=== PATIENT | male | born 1935 | race American Indian/Alaskan Native ===

== ENCOUNTER 2019-05-14 09:13 | Outpatient (CLI) | payer MEDICARE ==
--- NOTE | 2019-05-14 11:06 | Ultrasound Report ---
RENAL ULTRASOUND HISTORY: N28.9 RENAL INSUFFICIENCY COMPARISON: 08/19/2015 TECHNIQUE: Multiple real-time ultrasonographic grayscale images were obtained of the kidneys and urin loren bladder. FINDINGS: Right kidney: Moderate cortical thinning and increased echogenicity of the kidney. No hydronephrosis. Kidney measures 8.2 cm. Left kidney: Moderate cortical thinning and increased echogenicity of the kidney. No hydronephrosis. Kidney measures 6.8 cm. Urinary bladder: No significant abnormality. Additional findings: None. IMPRESSION: 1. Bilateral medical renal disease with no hydronephrosis. Signer Name: Cedrick Pearson MD Signed: 05/14/2019 11:02 AM Workstation Name: [id number]
== END 2019-05-14 09:14 | disposition home or self-care (01) ==
LOC: US 09:13
PROVIDERS: ATTEND Urology
DX: N28.9 Disorder of kidney and ureter, unspecified (principal); N19 Unspecified kidney failure
CPT/HCPCS: 76770